=== PATIENT | female | born 1975 | race Caucasian/White ===

== ENCOUNTER 2020-04-17 15:37 | Emergency (ER) | payer OTHER, SELFPAY ==
[2020-04-17 15:44] VITALS: BP 107/62; PULSE 88; RESP 16; TEMP 37.2; O2SAT 98
--- NOTE | 2020-04-17 15:51 | ED.URI ---
HPI - URI/Sore Throat General Chief Complaint: Upper Respiratory Infection Stated Complaint: sore throat/ear pain Time Seen by Provider: 04/17/20 15:51 Source: patient and RN notes reviewed History of Present Illness HPI Narrative: Patient is a 44-year-old female who presents the urgent care with complaints of 5-day history of a sore throat. Patient states that she has impetigo on her face and has been using her cream as directed to the area for the last 3 days and it has since improved. Patient states that she now has white sores on her tongue and was wondering if it was related to her facial impetigo. Patient has not used anything for her sore throat. States that she has taken 1 dose of ibuprofen. Denies of any fever, nausea, vomiting. No other acute complaints. No acute distress noted. Patient read the plan of care. Related Data Home Medications Medication Instructions Recorded Confirmed duloxetine 60 mg PO DAILY 04/17/20 04/17/20 montelukast 10 mg PO DAILY 04/17/20 04/17/20 mupirocin 2 % TOPICAL TID 04/17/20 04/17/20 tizanidine 4 mg PO DAILY 04/17/20 04/17/20 Allergies Allergy/AdvReac Type Severity Reaction Status Date / Time dextromethorphan Allergy Unknown Unverified 04/05/19 14:40 Review of Systems Review of Systems: Narrative: CONSTITUTIONAL: Denies fever, chills, or sweats. EYES: Denies visual changes, redness, or discharge. ENT: Reports of sore throat CARDIOVASCULAR: Denies chest pain, palpitations, or edema. RESPIRATORY: Denies cough or dyspnea. GASTROINTESTINAL: Denies abdominal pain, nausea, vomiting, or diarrhea. GENITOURINARY: Denies dysuria or hematuria. SKIN: Reports of impetigo on the face MUSCULOSKELETAL: Denies back pain, joint pain, or myalgia. NEUROLOGIC: Denies headache, numbness, or weakness. All other systems reviewed are negative, except as documented in HPI. PMFSH Comments At the time of my signature, I reviewed and agree with the nursing past medical, surgical, social, and family history. There is no relevant family history pertinent to the patient complaint. Exam Narrative: Exam Narrative: GENERAL: This is a well-nourished, well-developed patient, in no apparent distress. HEAD: normocephalic, atraumatic. EYES: PERRL. Sclera clear/white. Vision is grossly intact. EARS: External ears normal, auditory canals clear and without drainage, TMs normal without perforation. Hearing grossly intact. NOSE: External nose normal with no obvious nasal discharge, nares without redness, no rhinorrhea. THROAT: Mucous membranes moist, mild erythema noted posterior oropharynx. NECK: Neck supple SKIN: Nonpustular healing scabbed 0.25 cm impetigo noted to the right face, right side of the vermilion border NEURO: awake, alert, and oriented to person, place and time. There were no obvious focal neurologic abnormalities. EXTREMITIES: No clubbing, cyanosis, or edema. Course Vital Signs Vital signs: Vital Signs Temperature 99 F 04/17/20 15:44 Pulse Rate 88 04/17/20 15:44 Respiratory Rate 16 04/17/20 15:44 Blood Pressure 107/62 04/17/20 15:44 Pulse Oximetry 98 04/17/20 15:44 Temperature 99 F 04/17/20 15:44 Pulse Rate 88 04/17/20 15:44 Respiratory Rate 16 04/17/20 15:44 Blood Pressure 107/62 04/17/20 15:44 Pulse Oximetry 98 04/17/20 15:44 Reviewed MDM - URI/Sore Throat MDM Narrative Medical decision making narrative: Reviewed lab results with the patient. She is aware that strep swab was negative. Educated patient on culture and we will call within 72 hours if culture is positive and antibiotics are necessary. Advised the patient to use [id number] medication such as Claritin or Zyrtec in conjunction with Flonase nasal spray for postnasal drainage. Increase water intake and rest. Avoid super acidic foods due to notable sores on the tongue. Continue the facial cream for impetigo. Follow-up with your PCP within 2 to 5 days or for worsening symptoms or failure to im
== END 2020-04-17 16:09 | disposition home or self-care (01) ==
PROVIDERS: Emergency Provider Nurse Practitioner Family; PCP Internal Medicine
DX: J02.9 Acute pharyngitis, unspecified (principal); M79.7 Fibromyalgia
CPT/HCPCS: 87081; 87880; 99213; G0463